=== PATIENT | male | born 1970 | race Caucasian/White ===

== ENCOUNTER 2017-01-10 12:41 | Emergency (ER) | payer OTHER ==
[~2017-01-10] VITALS: Ht 177.8 cm; Wt 68.0 kg
[~2017-01-10 12:41] MED LIST: ASPIR 8181 MG PO; GLU850 PO; GLUCOTROL5 MG PO; LAC PO; LEVAQUIN750 MG PO; LEVEMIR100 U/M1 SC; NORCO1 TA1 PO; ZESTRIL10 MG PO
[2017-01-10 15:26] VITALS: BP 141/47
== END 2017-01-10 15:26 | disposition home or self-care (01) ==
LOC: ED 12:41
DX: M25.512 Pain in left shoulder (principal)
CPT/HCPCS: J1885